=== PATIENT | male | born 1985 | race Caucasian/White ===

== ENCOUNTER 2025-08-29 19:55 | Emergency (ER) | payer MEDICAID, OTHER ==
[~2025-08-29] VITALS: Ht 167.6 cm; Wt 90.9 kg
[2025-08-29 20:14] LABS: COVID AG,FIA SOURCE NASAL SWAB
[2025-08-29 20:33] LABS: PLATELET COUNT (AUTO) 376 K/uL (150-450); RED BLOOD CELL COUNT(AUTO) 4.79 MIL/uL (4.50-5.90); RED CELL DISTRIBUTION WIDTH 12.4 % (11.5-14.5); WHITE BLOOD COUNT (AUTO) 7.3 K/uL (4.5-11.0)
[2025-08-29 20:34] LABS: INFLUENZA TYPE A NEGATIVE FOR TYPE A (NEGATIVE); INFLUENZA TYPE B NEGATIVE FOR TYPE B (NEGATIVE); SARS-COV2 (COVID) ANTIGEN,FIA Negative (Negative)
[2025-08-29 20:42] LABS: CALCIUM, TOTAL 8.6 mg/dL (8.8-10.5); CREATININE 1.29 mg/dL (0.60-1.30); GLOMERULAR FILTR. RATE CALC > 60 mL/min (>60); GLUCOSE,RANDOM 88 mg/dL (70-110); SODIUM SERUM 137 mmol/L (136-145); UREA NITROGEN, BLOOD 13 mg/dL (7-18)
[2025-08-29 20:50] LABS: TROPONIN I-HIGH SENSITIVITY 6 ng/L (<76)
[2025-08-29 23:01] LABS: TROPONIN I-HIGH SENSITIVITY 6 ng/L (<76)
[2025-08-29] MEDS: ALBUTEROL SULFATE HFA 90 MCG/PUFF 8 GM INHALER IH ONE (23:04)
[2025-08-29] MEDS: KETOROLAC TROMETHAMINE 30 MG/ML VIAL IM ONE (23:05)
[2025-08-30] MEDS ORDERED: AZIT250T9 PO (00:03)
[2025-08-30 00:20] VITALS: BP 133/84; PULSE 87; RESP 18; TEMP 97.3; O2SAT 98
== END 2025-08-30 01:35 | disposition home or self-care (01) ==
LOC: EMS 19:55
DX: M94.0 Chondrocostal junction syndrome [Tietze] (principal); J18.0 Bronchopneumonia, unspecified organism; R42 Dizziness and giddiness; R05.9 Cough, unspecified; R09.81 Nasal congestion; F20.9 Schizophrenia, unspecified; I10 Essential (primary) hypertension; Z20.822 Contact with and (suspected) exposure to COVID-19
CPT/HCPCS: 99285; 71045; 87426; 80048; 84484; 85025; 87804; 36415; 94640; 93005; 96372; J1885; J3535